=== PATIENT | male | born 1995 | race Caucasian/White ===

== ENCOUNTER 2016-09-17 14:31 | Emergency (ER) | payer BC ==
[~2016-09-17] VITALS: Wt 118.0 kg
--- NOTE | 2016-09-17 16:13 | ERD ---
ER Documentation Chief Complaint Date/Time DATE: 09/17/16 TIME: 15:55 Chief Complaint LEFT LOWER LEG REDNESS NO TRAUMA MILD SWELLING HPI 21 y/o male presents to ED for left leg swelling and pain. Patient stated that her left leg swelling has increased in the past couple of months. Pain on left leg has increased in the past week. Stated that this is he has been sitting a lot for long hours. Also reports that she has right lower extremity swelling that is chronic. Patient reports mild shortness of breath this morning. Denies headache, loss of consciousness, dizziness, blurry vision, changes in vision, photophobia, facial pain, ear pain, throat pain, difficulty swallowing, neck pain, shoulder pain, chest pain, cough, hemoptysis, abdominal pain, back pain, loss of appetite, nausea, vomiting, hematochezia, diarrhea, constipation, urinary symptoms, bladder and bowel incontinences, numbness or tingling sensation, difficulty walking, recent travel, recent exposure to illness, recent antibiotic use in the last 3 months, fever, chills. Allergy: NKA PMH: Asthma, right lower extremity chronic swelling Medications: None. Surgery: Right lower leg vascular surgery. Family history: Denies. Primary Social History: Not working at this time. Occasional drinks alcoholic beverages. Denies smoking, use of illegal drugs. ROS All systems reviewed and are negative except as per history of present illness. Physical Exam Vitals Vital Signs Date Time Temp Pulse Resp B/P Pulse Ox O2 Delivery O2 Flow Rate FiO2 09/17/16 14:36 98.5 112 22 160/84 98 Physical Exam CONSTITUTIONAL: Well-appearing; well-nourished; in no apparent distress. HEAD: Normocephalic; atraumatic. EYES: Conjunctiva clear, sclera non-icteric, EOM intact. PERRL Ears: Hearing intact. EACs clear, TMs non-bulging, non-inflamed, translucent & mobile, ossicles normal appearance, No obstructions, no erythema, no discharges Nose: No obstructions. No polyps. No external lesions. Mucosa non-inflamed. No external lesions, septum and turbinates normal. No rhinorrhea. No discharges. Frontal sinus is non-tender to palpation. Maxillary sinus is non-tender to palpation. MOUTH: Moist mucous membranes, no lesion, no obstructions, no vesicles, no thrush, patent airway Throat: Uvula in midline. Right tonsil is +1 with no erythema, no exudate. Left tonsil is +1 with no erythema, no exudate. Tolerating secretions well. Good gag reflex. Patent airway. Neck: Supple, without lesions, bruits, or adenopathy. No mass. Thyroid non- enlarged and non-tender to palpation. CHEST: Symmetrical chest. Respirations even and not labored. No retractions noted. CARDIOVASCULAR: Normal S1, S2. RRR. No murmurs, gallops. RESPIRATORY: Normal chest excursion with respiration; breath sounds clear and equal bilaterally; no wheezes, rhonchi, or rales. Breathing even and unlabored. Speaking in clear, full, and complete sentences w/ ease. ABDOMEN: Normal bowel sounds normal. Soft, round, non-distended, non-guarding, no tenderness, no rebound, no organomegaly, no masses, no pulsating abdominal mass. No hernia. No peritoneal signs. : No CVA tenderness. BACK: Symmetrical shoulder. Spine is midline without deformity, tenderness. No evidence of trauma or deformity. PELVIS: Stable pelvis. No evidence of trauma or deformity. MUSCULOSKELETAL: Normal gait and station. No misalignment, asymmetry, crepitation, defects, tenderness, masses, effusions, decreased range of motion, instability, atrophy or abnormal strength or tone in the head, neck, spine, ribs , pelvis or extremities. Left lower extremity swelling and calf tenderness. Left lower extremity swelling is greater than the right lower extremity swelling. Ambulatory with steady gait. Edema is nonpitting. No induration. Circulation sensation is intact. Pedal pulses are present. No neurovascular deficits. No neurological deficits. NEUROVASCULAR: Distal pulses are present. Pedal pulse are present, equal, and normal. Capillary refills are < 2 seconds. NEUROLOGIC: Alert and oriented x4. Speaks full and clear sentences. Cranial Nerves II-XII normal. Sensation to pain, touch, and proprioception normal. Grossly unremarkable. No neurologic deficits. Romberg test is negative. PSYCHOLOGICAL: The patients mood and manner are appropriate. No hallucinations , delusions. Not SI. Not HI. Has the capacity to decide for self SKIN: Normal for age and ethnicity; warm; dry; good turgor; no apparent lesions or exudates. No rashes, hives. Intact. Result Diagram: 09/17/16 1619 09/17/16 161 Results 24 hrs Laboratory Tests Test 09/17/16 16:19 Activated Partial Thromboplast Time 28.8Sec Anion Gap 21 B-Type Natriuretic Peptide 33PG/ML Basophils # 0.110^3/ul Basophils % 1.2% Blood Urea Nitrogen 12mg/dl Calcium Level 9.4mg/dl Carbon Dioxide Level 26mmol/L Chloride Level 102mmol/L Creatinine 0.97mg/dl D-Dimer 337.88ng/ml D-Dimer Comment Eosinophils # 0.110^3/ul Eosinophils % 1.4% Glucose Level 93mg/dl Hematocrit 47.7% Hemoglobin 16.7g/dl INR International Normalized Ratio 0.97 Lymphocytes # 2.210^3/ul Lymphocytes % 28.0% Mean Corpuscular Hemoglobin 29.9pg Mean Corpuscular Hemoglobin Concent 35.0g/dl Mean Corpuscular Volume 85.2fl Mean Platelet Volume 9.3fl Monocytes # 0.910^3/ul Monocytes % 11.4% Neutrophils # 4.510^3/ul Neutrophils % 58.0% Nucleated Red Blood Cells # 0.010^3/ul Nucleated Red Blood Cells % 0.0/100WBC Platelet Count 51283^3/UL Potassium Level 4.4mmol/L Prothrombin Time 12.9Sec Prothrombin Time Ratio 1.0 Red Blood Count 5.5910^6/ul Red Cell Distribution Width 13.0% Sodium Level 145mmol/L White Blood Count 7.810^3/ul Procedures/MDM Examination: Please see physical examination. Disease process, medical treatment was explained to the patient. He verbalized understanding and agreed with the diagnostic tests, medical treatment, and follow-up care. Radiology: Ultrasound bilateral lower extremity. Findings: There is normal compressibility and flow within the bilateral common femoral, superficial femoral and popliteal veins. The right peroneal vein was not seen. The posterior tibial veins are patent. The left peroneal vein is patent. Blood works: Reviewed. Treatment: Re-evaluation: Denies pain. Consultation: None. Differential diagnosis: Deep vein thrombosis versus lower extremity edema versus leg pain Case, patient's history, diagnostic tests were discussed with supervising emergency room physician, Dr. Mamadou Bruno who agreed with my present medical judgment and follow-up care. Medical decision makin21 y/o male presents to ED for left leg swelling and pain. Patient stated that her left leg swelling has increased in the past couple of months. Pain on left leg has increased in the past week. Stated that this is he has been sitting a lot for long hours. Also reports that she has right lower extremity swelling that is chronic. Patient reports mild shortness of breath this morning. Patient's complaint, patient's history, my physical findings, diagnostic test results are consistent with my final diagnosis of lower leg pain pain and swelling with uncertain etiology. Medications prescribed are the following: Motrin for pain. Patient was also instructed to elevate his bilateral lower legs for comfort. Patient and family member are made aware of the side effects and adverse reactions of the medications prescribed. Instructed on when to seek emergent and medical attention in case allergic/anaphylactic reactions or severe side effects and or adverse reactions to medications. Patient and family member verbalized understanding. Patient instructed Instructed to follow-up with his PCP in 24-48 hours. Instructed to Call 911 for chest pain, shortness of breath. Advised to come back here in ED as soon as possible for severity of symptoms which includes but not limited to: any new symptoms; shortness of breath/difficulty of breathing; cardiovascular changes; severe gastrointestinal symptoms; signs and symptoms of bleeding and or infection; signs of compartment syndrome/neurovascular changes; neurological changes/deficits. Patient and family member verbalized understanding. Upon discharge, patient is alert and oriented x 4, speaks full and clear sentences, denies pain, has no neurological deficits, has no neurovascular deficits, difficulty of breathing. Breathing even and unlabored. Lung sounds are clear to auscultation. Not in distress. Appears comfortable. Ambulatory with steady gait. Appears satisfied with care provided here in ED. Departure Diagnosis: Primary Impression: Swelling Additional Impression: Leg pain Laterality: bilateral Qualified Code: M79.604 - Pain in both lower extremities Condition: Good Additional Instructions: Follow-up with PCP in the next 24-48 hours. FELICE GALLOWAY Sep 17, 2016 16:13
[2016-09-17 16:41] LABS: BASOPHIL # 0.1 10^3/ul (0.0-0.1); BASOPHILS % 1.2 % (0.0-2.0); EOSINOPHILS # 0.1 10^3/ul (0.0-0.5); EOSINOPHILS % 1.4 % (0.0-7.0); HEMATOCRIT 47.7 % (42.0-52.0); HEMOGLOBIN 16.7 g/dl (14.0-18.0); LYMPHOCYTES # 2.2 10^3/ul (0.8-2.9); MEAN CORPUSCULAR HEMOGLOBIN 29.9 pg (29.0-33.0); MEAN CORPUSCULAR VOLUME 85.2 fl (82.0-101.0); MEAN PLATELET VOLUME 9.3 fl (7.4-10.4); MONOCYTE # 0.9 10^3/ul (0.3-0.9); MONOCYTES % 11.4 % (0.0-11.0); NEUTROPHIL # 4.5 10^3/ul (1.6-7.5); PLATELET COUNT 264 10^3/UL (140-440); RED BLOOD COUNT 5.59 10^6/ul (4.70-6.10); UNCORRECTED WBC 7.8 10^3/ul (4.8-10.8); WHITE BLOOD COUNT 7.8 10^3/ul (4.8-10.8)
[2016-09-17 16:42] LABS: CONDITION 1
[2016-09-17 16:49] LABS: POTASSIUM 4.4 mmol/L (3.5-5.1)
[2016-09-17 16:52] LABS: CREATININE 0.97 mg/dl (0.61-1.24); INR 0.97; PROTIME 12.9 Sec (12.2-14.2)
[2016-09-17 16:53] LABS: CALCIUM 9.4 mg/dl (8.4-10.2); PARTIAL THROMBOPLASTIN TIME 28.8 Sec (25.0-35.0)
[2016-09-17 17:01] LABS: D-DIMER 337.88 ng/ml (<460)
--- NOTE | 2016-09-17 17:06 | RADRPT ---
PROCEDURE: US Lower extremity Venous. CLINICAL INDICATION: Bilateral lower extremity swelling TECHNIQUE: Multiple sonographic images of the bilateral lower extremity deep venous system was obt ained utilizing grayscale, color-flow, compressive sonography and doppler imaging with augmentation. The images were reviewed on a PACS workstation. COMPARISON: None. FINDINGS: There is normal compressibility and flow within the bilateral common femoral, superficial femoral an d popliteal veins. The right peroneal vein was not seen. The posterior tibial veins are patent. The left peroneal vein is patent. RPTAT: AA IMPRESSION: No sonographic evidence for deep venous thrombosis. .Lorenzo Helton MD, MD Date Time Electronically viewed and signed by .Lorenzo Helton MD, on 09/17/2016 17:05 .S/
[2016-09-17] MEDS ORDERED: IBUP400T22 PO (17:33)
== END 2016-09-17 17:35 | disposition home or self-care (01) ==
LOC: FTE 14:31
DX: M79.89 Other specified soft tissue disorders (principal); M79.604 Pain in right leg; M79.605 Pain in left leg; J45.909 Unspecified asthma, uncomplicated
CPT/HCPCS: 80048; 83880; 85025; 85378; 85610; 85730; 93970

== ENCOUNTER 2016-11-12 09:30 | Emergency (ER) | payer BC ==
[~2016-11-12] VITALS: Ht 188 cm; Wt 119.0 kg
[~2016-11-12 09:30] MED LIST: IBUP400T22 PO
[2016-11-12 09:37] VITALS: Ht 188 cm; Wt 119.0 kg
[2016-11-12] MEDS ORDERED: IBUPROFEN 600 MG TAB PO ONE (10:30)
--- NOTE | 2016-11-12 10:51 | RADRPT ---
PROCEDURE: XR Left foot. CLINICAL INDICATION: Left foot pain, trauma TECHNIQUE: Three views of the left foot were obtained. COMPARISON: No prior studies are available for comparison. FINDINGS: There is no acute fracture or dislocation. Alignment is normal. Joint spaces are preserved. There is mild forefoot soft tissue swelling. IMPRESSION: 1. No radiographic evidence of acute osseous abnormality. 2. Mild forefoot soft tissue swelling. RPTAT: UU .Lane Alcantar MD, MD Date Time Electronically viewed and signed by .Lane Alcantar MD, on 11/12/2016 10:51 .K/
[2016-11-12] MEDS ORDERED: TRAM-40 PO (11:08)
[2016-11-12] MEDS ORDERED: IBUP-1542 PO (11:08)
--- NOTE | 2016-11-12 11:11 | ERD ---
ER Documentation Chief Complaint Date/Time DATE: 11/12/16 TIME: 11:09 Chief Complaint LT FOOT PAIN/SWELLING SINCE SATURDAY. HX LT FOOT STRESS FX. HPI This 21-year-old male complains of left foot pain and swelling for the last 3 days. It started after moving heavy furniture. He has a history of stress fracture in the affected foot approximately 9 years ago. Denies fevers, redness , bleeding, weakness. He has muscle spasm in the dorsum of left foot. ROS All systems reviewed and are negative except as per history of present illness. Medications Home Meds Active Scripts Tramadol Hcl* (Ultram*) 50 Mg Tablet, 50 MG PO Q6H Y for PAIN, #15 TAB Prov:GREER RAMIREZ MD 11/12/16 Ibuprofen* (Motrin*) 600 Mg Tab, 600 MG PO Q6H Y for PAIN, #20 TAB Prov:GREER RAMIREZ MD 11/12/16 Ibuprofen* (Motrin*) 400 Mg Tab, 400 MG PO Q6 Y for PAIN, #30 TAB Prov:FELICE GALLOWAY 09/17/16 PMhx/Soc Hx Alcohol Use: No Hx Substance Use: No Hx Tobacco Use: No Physical Exam Vitals Vital Signs Date Time Temp Pulse Resp B/P Pulse Ox O2 Delivery O2 Flow Rate FiO2 11/12/16 09:37 99.6 99 16 149/93 99 Physical Exam Const: [] Alert, [id number]. Head: Atraumatic Eyes: Normal Conjunctiva ENT: Normal External Ears, Nose and Mouth. Neck: Full range of motion..~ No meningismus. Resp: Clear to auscultation bilaterally Cardio: Regular rate and rhythm, no murmurs Abd: Soft, non tender, non distended. Normal bowel sounds Skin: No petechiae or rashes Back: No midline or flank tenderness Ext: No cyanosis, or edema. There is some tenderness and swelling across the dorsum of the left foot without erythema, warmth, restricted range of motion or weakness. There is no ankle or knee tenderness. Neur: Awake and alert Psych: Normal Mood and Affect Results 24 hrs Current Medications Medications (Trade) Dose Ordered Sig/Joel Route PRN Reason Start Time Stop Time Status Last Admin Dose Admin Ibuprofen (Motrin) 600 mg ONCE ONCE PO 4/10/17 10:30 11/12/16 10:31 DC 11/12/16 10:23 Procedures/MDM X-ray Foot 3V Interpreted by me: Bones: No fracture Joints: No dislocation Foreign body: None. Impression-soft tissue swelling without evidence of fracture dislocation Patient is given ibuprofen for pain and placed in the left foot walker boot. Patient has left foot pain after moving furniture with a history of stress fracture. Patient was discharged home instructions for limited weightbearing and use of the boot and repeat x-ray in 10-14 days for persistent pain. Return sooner for fevers, redness, new symptoms. Signs and symptoms do not suggest osteomyelitis, septic arthritis, fracture, dislocation, ischemia. Departure Diagnosis: Primary Impression: Injury of foot Encounter type: initial encounter Laterality: left Qualified Code: S99.922A - Injury of foot, left, initial encounter Condition: Stable Patient Instructions: Sprain Foot Referrals: ANDREI HUITRON MD Additional Instructions: No fracture seen on x-ray although stress fractures may not be visible in the first few days. Recommend repeat x-ray in 10-14 days for persistent pain. Elevate at home. Recheck sooner for fevers, redness, new symptoms. Recheck with orthopedics her primary doctor for follow-up. GREER RAMIREZ MD Nov 12, 2016 11:11
== END 2016-11-12 11:27 | disposition home or self-care (01) ==
LOC: FTE 09:30
DX: S99.922A Unspecified injury of left foot, initial encounter (principal); X50.9XXA Other and unspecified overexertion or strenuous movements or postures, initial encounter; Y92.9 Unspecified place or not applicable